=== PATIENT | male | born 1965 | race Caucasian/White ===

== ENCOUNTER 2016-08-31 08:07 | Day surgery (SDC) | payer BC ==
[~2016-08-31 08:07] MED LIST: ALLOPURINOL300 M1 PO; HYDROCODON-ACE1 EA16 PO; LIPITOR10 M1 PO; LOSARTAN-HCTZ1 EAC4 PO; MEDS; NORVASC10 M2 PO; OMEPRAZOLE40 M2 PO
[2016-08-31] MEDS ORDERED: PREDNISONE10 M1 PO (08:40)
[2016-08-31] MEDS ORDERED: DULCOLAX STOOL100 M1 PO (08:43)
[2016-08-31] MEDS ORDERED: ASPIRIN EC81 MG PO (08:44)
[2016-08-31] MEDS ORDERED: BACTRIM DS TAB1 EAC2 PO (08:44)
[2016-08-31] MEDS ORDERED: COMPAZINE10 MG PO (08:45)
[2016-08-31] MEDS ORDERED: BENADRYL25 M3 PO (08:46)
[2016-08-31] MEDS ORDERED: TYLENOL EXTRA500 M1 PO (08:46)
[2016-08-31] MEDS ORDERED: LIDOCAINE-PRILO30 G1 TP (08:48)
[2016-08-31 09:07] LABS: BASO % 0.3 % (0-2); BASO ABSOLUTE COUNT 0.1 tho/cmm (0.0-0.2); HCT-HEMATOCRIT 33.9 % (36.0-53.5); IMMATURE GRANULOCYTES ABSOLUTE 0.54 tho/cmm (0-0.03); IMMATURE GRANULOCYTES PERCENT 2.2 % (0-0.3); LYMPH ABSOLUTE COUNT 1.5 tho/cmm (0.8-4.5); MCH (MEAN CORPUSCULAR HGB) 28.1 pg (28.0-32.0); MCHC MEAN CORPUSCULAR HGB CONC 32.4 % (32.0-36.0); MCV (MEAN CELL VOLUME) 86.7 fl (82.0-96.0); MEAN PLATELET VOLUME 9.2 cmc (9.4-12.4); MONO % 5.7 % (0-12); MONOCYTE ABSOLUTE COUNT 1.4 tho/cmm (0.0-1.2); NEUTROPHILS % 85.8 % (40-80); PLATELET COUNT 334 tho/cmm (150-450); RED BLOOD COUNT 3.91 mil/cmm (4.40-5.70); RED CELL DISTRIBUTION WIDTH 18.3 % (12.4-16.4); WHITE BLOOD COUNT 24.5 tho/cmm (4.0-10.0)
[2016-08-31 09:15] LABS: PROTHROMBIN TIME 11.6 SECONDS (9.0-13.6)
[2016-12-06] MEDS ORDERED: LIPITOR10 M1 PO (10:38)
[2016-12-10] MEDS ORDERED: HYDROCHLOROTH12.5 M3 PO (12:18)
[2016-12-24] MEDS ORDERED: BENADRYL25 M3 PO (11:02)
[2016-12-24] MEDS ORDERED: MAALOX MAXIMUM355 M1 PO (11:04)
[2016-12-24] MEDS ORDERED: POTASSIUM CHLO20 ME3 PO (11:05)
[2016-12-24] MEDS ORDERED: LEUCOVORIN PO (15:07)
[2017-01-06] MEDS ORDERED: LEUCOVORIN PO (15:33)
== END 2016-08-31 13:07 ==
LOC: RADSP 08:07 → SHSB 08:08
PROVIDERS: Radiology Diagnostic Radiology
PROC: 009U3ZZ Drainage of Spinal Canal, Percutaneous Approach (ICD-10-PCS; principal; 2016-08-31)
PROC: B01BZZZ Fluoroscopy of Spinal Cord (ICD-10-PCS; 2016-08-31)
DX: C83.34 Diffuse large B-cell lymphoma, lymph nodes of axilla and upper limb (principal); I10 Essential (primary) hypertension; K21.9 Gastro-esophageal reflux disease without esophagitis; E78.5 Hyperlipidemia, unspecified; K76.0 Fatty (change of) liver, not elsewhere classified; E66.01 Morbid (severe) obesity due to excess calories; Z68.41 Body mass index [BMI] 40.0-44.9, adult
CPT/HCPCS: J7030; J9260

== ENCOUNTER 2016-09-21 08:25 | Day surgery (SDC) | payer BC ==
[~2016-09-21 08:25] MED LIST changes: +ASPIRIN EC81 MG PO; +BACTRIM DS TAB1 EAC2 PO; +BENADRYL25 M3 PO; +COMPAZINE10 MG PO; +DULCOLAX STOOL100 M1 PO; +LIDOCAINE-PRILO30 G1 TP; +PREDNISONE10 M1 PO; +TYLENOL EXTRA500 M1 PO
[2016-12-06] MEDS ORDERED: LIPITOR10 M1 PO (10:38)
[2016-12-10] MEDS ORDERED: HYDROCHLOROTH12.5 M3 PO (12:18)
[2016-12-24] MEDS ORDERED: BENADRYL25 M3 PO (11:02)
[2016-12-24] MEDS ORDERED: MAALOX MAXIMUM355 M1 PO (11:04)
[2016-12-24] MEDS ORDERED: POTASSIUM CHLO20 ME3 PO (11:05)
[2016-12-24] MEDS ORDERED: LEUCOVORIN PO (15:07)
[2017-01-06] MEDS ORDERED: LEUCOVORIN PO (15:33)
== END 2016-09-21 12:55 ==
LOC: RADSP 08:25 → SHSB 08:26
PROC: 009U3ZZ Drainage of Spinal Canal, Percutaneous Approach (ICD-10-PCS; principal; 2016-09-21)
PROC: B01BZZZ Fluoroscopy of Spinal Cord (ICD-10-PCS; 2016-09-21)
DX: C83.34 Diffuse large B-cell lymphoma, lymph nodes of axilla and upper limb (principal); I10 Essential (primary) hypertension; E78.5 Hyperlipidemia, unspecified; K21.9 Gastro-esophageal reflux disease without esophagitis; Z79.82 Long term (current) use of aspirin; Z79.899 Other long term (current) drug therapy
CPT/HCPCS: J7030

== ENCOUNTER 2016-10-12 08:36 | Day surgery (SDC) | payer BC ==
[2016-10-12 09:32] LABS: BASO % 0.1 % (0-2); HGB-HEMOGLOBIN 11.7 gm/dl (13.5-17.0); IMMATURE GRANULOCYTES ABSOLUTE 0.06 tho/cmm (0-0.03); IMMATURE GRANULOCYTES PERCENT 0.3 % (0-0.3); LYMPH % 3.8 % (20-45); LYMPH ABSOLUTE COUNT 0.7 tho/cmm (0.8-4.5); MCH (MEAN CORPUSCULAR HGB) 29.3 pg (28.0-32.0); MCHC MEAN CORPUSCULAR HGB CONC 33.4 % (32.0-36.0); MCV (MEAN CELL VOLUME) 87.7 fl (82.0-96.0); MONO % 3.9 % (0-12); MONOCYTE ABSOLUTE COUNT 0.7 tho/cmm (0.0-1.2); NEUTROPHIL ABSOLUTE COUNT 16.6 tho/cmm (1.6-8.0); NEUTROPHIL-AUTOMATED 16.6 tho/cmm (1.6-8.0); NEUTROPHILS % 91.9 % (40-80); PLATELET COUNT 340 tho/cmm (150-450); RED BLOOD COUNT 3.99 mil/cmm (4.40-5.70); RED CELL DISTRIBUTION WIDTH 19.4 % (12.4-16.4)
[2016-10-12 09:34] LABS: PROTHROMBIN TIME 11.6 SECONDS (9.0-13.6)
[2016-12-06] MEDS ORDERED: LIPITOR10 M1 PO (10:38)
[2016-12-10] MEDS ORDERED: HYDROCHLOROTH12.5 M3 PO (12:18)
[2016-12-24] MEDS ORDERED: BENADRYL25 M3 PO (11:02)
[2016-12-24] MEDS ORDERED: MAALOX MAXIMUM355 M1 PO (11:04)
[2016-12-24] MEDS ORDERED: POTASSIUM CHLO20 ME3 PO (11:05)
[2016-12-24] MEDS ORDERED: LEUCOVORIN PO (15:07)
[2017-01-06] MEDS ORDERED: LEUCOVORIN PO (15:33)
== END 2016-10-12 11:50 ==
LOC: RADSP 08:36 → SHSB 08:37
PROVIDERS: Radiology Diagnostic Radiology
PROC: 0Q903ZZ Drainage of Lumbar Vertebra, Percutaneous Approach (ICD-10-PCS; principal; 2016-10-12)
DX: C85.10 Unspecified B-cell lymphoma, unspecified site (principal); I10 Essential (primary) hypertension; E78.5 Hyperlipidemia, unspecified; D72.829 Elevated white blood cell count, unspecified; E66.01 Morbid (severe) obesity due to excess calories; K76.0 Fatty (change of) liver, not elsewhere classified; Z68.41 Body mass index [BMI] 40.0-44.9, adult; K21.9 Gastro-esophageal reflux disease without esophagitis; Z79.899 Other long term (current) drug therapy; Z87.891 Personal history of nicotine dependence; Z08 Encounter for follow-up examination after completed treatment for malignant neoplasm
CPT/HCPCS: J7030; J9260

== ENCOUNTER 2016-11-22 08:36 | Inpatient (IN) | payer BC ==
[2016-11-22 10:23] LABS: BASO % 1.4 % (0-2); BASO ABSOLUTE COUNT 0.2 tho/cmm (0.0-0.2); EOS % 0.6 % (0-7); EOSINOPHIL ABSOLUTE COUNT 0.1 tho/cmm (0.0-0.7); HCT-HEMATOCRIT 36.6 % (36.0-53.5); HGB-HEMOGLOBIN 11.9 gm/dl (13.5-17.0); IMMATURE GRANULOCYTES ABSOLUTE 0.06 tho/cmm (0-0.03); IMMATURE GRANULOCYTES PERCENT 0.6 % (0-0.3); LYMPH % 15.6 % (20-45); LYMPH ABSOLUTE COUNT 1.6 tho/cmm (0.8-4.5); MCH (MEAN CORPUSCULAR HGB) 29.5 pg (28.0-32.0); MCHC MEAN CORPUSCULAR HGB CONC 32.5 % (32.0-36.0); MCV (MEAN CELL VOLUME) 90.6 fl (82.0-96.0); MEAN PLATELET VOLUME 9.1 cmc (9.4-12.4); MONO % 10.9 % (0-12); MONOCYTE ABSOLUTE COUNT 1.1 tho/cmm (0.0-1.2); NEUTROPHIL ABSOLUTE COUNT 7.4 tho/cmm (1.6-8.0); NEUTROPHIL-AUTOMATED 7.4 tho/cmm (1.6-8.0); NEUTROPHILS % 70.9 % (40-80); PLATELET COUNT 309 tho/cmm (150-450); RED BLOOD COUNT 4.04 mil/cmm (4.40-5.70); WHITE BLOOD COUNT 10.4 tho/cmm (4.0-10.0)
[2016-11-22 10:45] LABS: ALB/GLOB RATIO 1.1 (0.8-2.0); ALBUMIN 3.4 g/dl (3.5-5.0); ALKALINE PHOSPHATASE 61 U/L (33-138); ALT/SGPT 35 U/L (12-78); ANION GAP 12 mmol/L (0-20); AST/SGOT 32 U/L (10-40); BILIRUBIN,TOTAL 0.3 mg/dl (0.0-1.5); BLOOD UREA NITROGEN 14 mg/dl (6-24); CALCIUM 8.9 mg/dl (8.5-10.5); CARBON DIOXIDE-VENOUS 28 mmol/L (22-32); CHLORIDE 106 mmol/l (96-110); CREATININE 0.75 mg/dl (0.60-1.30); GLUCOSE 86 mg/dL (70-110); POTASSIUM 3.5 mmol/L (3.7-5.1); SODIUM 142 mmol/L (135-145); eGFR VALUE FOR BLACK >90 mL/Min
[2016-11-23 06:24] LABS: BASO % 0.2 % (0-2); HCT-HEMATOCRIT 36.1 % (36.0-53.5); HGB-HEMOGLOBIN 12.1 gm/dl (13.5-17.0); IMMATURE GRANULOCYTES ABSOLUTE 0.05 tho/cmm (0-0.03); IMMATURE GRANULOCYTES PERCENT 0.3 % (0-0.3); LYMPH % 3.9 % (20-45); LYMPH ABSOLUTE COUNT 0.6 tho/cmm (0.8-4.5); MCH (MEAN CORPUSCULAR HGB) 29.5 pg (28.0-32.0); MCHC MEAN CORPUSCULAR HGB CONC 33.5 % (32.0-36.0); MEAN PLATELET VOLUME 8.8 cmc (9.4-12.4); MONO % 1.3 % (0-12); MONOCYTE ABSOLUTE COUNT 0.2 tho/cmm (0.0-1.2); NEUTROPHIL ABSOLUTE COUNT 14.2 tho/cmm (1.6-8.0); NEUTROPHIL-AUTOMATED 14.2 tho/cmm (1.6-8.0); NEUTROPHILS % 94.3 % (40-80); PLATELET COUNT 292 tho/cmm (150-450); RED CELL DISTRIBUTION WIDTH 16.3 % (12.4-16.4); WHITE BLOOD COUNT 15.1 tho/cmm (4.0-10.0)
[2016-11-23 06:42] LABS: ALBUMIN 2.8 g/dl (3.5-5.0); ALKALINE PHOSPHATASE 57 U/L (33-138); ALT/SGPT 36 U/L (12-78); ANION GAP 16 mmol/L (0-20); AST/SGOT 23 U/L (10-40); BLOOD UREA NITROGEN 10 mg/dl (6-24); CALCIUM 7.4 mg/dl (8.5-10.5); CARBON DIOXIDE-VENOUS 24 mmol/L (22-32); CHLORIDE 105 mmol/l (96-110); CREATININE 0.54 mg/dl (0.60-1.30); GLUCOSE 101 mg/dL (70-110); POTASSIUM 3.8 mmol/L (3.7-5.1); SODIUM 141 mmol/L (135-145); eGFR VALUE FOR BLACK >90 mL/Min
[2016-11-23 06:47] LABS: BILIRUBIN,TOTAL 0.5 mg/dl (0.0-1.5)
[2016-11-24 05:36] LABS: BASO % 0.3 % (0-2); HCT-HEMATOCRIT 35.1 % (36.0-53.5); HGB-HEMOGLOBIN 11.5 gm/dl (13.5-17.0); IMMATURE GRANULOCYTES ABSOLUTE 0.03 tho/cmm (0-0.03); IMMATURE GRANULOCYTES PERCENT 0.3 % (0-0.3); LYMPH % 13.4 % (20-45); LYMPH ABSOLUTE COUNT 1.5 tho/cmm (0.8-4.5); MCH (MEAN CORPUSCULAR HGB) 29.5 pg (28.0-32.0); MCHC MEAN CORPUSCULAR HGB CONC 32.8 % (32.0-36.0); MEAN PLATELET VOLUME 9.2 cmc (9.4-12.4); MONO % 8.4 % (0-12); NEUTROPHIL ABSOLUTE COUNT 8.9 tho/cmm (1.6-8.0); NEUTROPHIL-AUTOMATED 8.9 tho/cmm (1.6-8.0); NEUTROPHILS % 77.6 % (40-80); PLATELET COUNT 294 tho/cmm (150-450); RED CELL DISTRIBUTION WIDTH 17.1 % (12.4-16.4); WHITE BLOOD COUNT 11.5 tho/cmm (4.0-10.0)
[2016-11-24 06:04] LABS: ALB/GLOB RATIO 1.1 (0.8-2.0); ALBUMIN 3.2 g/dl (3.5-5.0); ALKALINE PHOSPHATASE 62 U/L (33-138); ALT/SGPT 51 U/L (12-78); ANION GAP 12 mmol/L (0-20); AST/SGOT 36 U/L (10-40); BLOOD UREA NITROGEN 10 mg/dl (6-24); CALCIUM 8.4 mg/dl (8.5-10.5); CARBON DIOXIDE-VENOUS 28 mmol/L (22-32); CHLORIDE 110 mmol/l (96-110); CREATININE 0.65 mg/dl (0.60-1.30); GLUCOSE 104 mg/dL (70-110); POTASSIUM 3.7 mmol/L (3.7-5.1); SODIUM 146 mmol/L (135-145); eGFR VALUE FOR BLACK >90 mL/Min
[2016-11-24 06:06] LABS: BILIRUBIN,TOTAL 0.2 mg/dl (0.0-1.5)
[2016-11-25 03:49] LABS: BASO % 1.6 % (0-2); BASO ABSOLUTE COUNT 0.1 tho/cmm (0.0-0.2); EOS % 0.6 % (0-7); EOSINOPHIL ABSOLUTE COUNT 0.1 tho/cmm (0.0-0.7); HCT-HEMATOCRIT 37.3 % (36.0-53.5); IMMATURE GRANULOCYTES ABSOLUTE 0.02 tho/cmm (0-0.03); IMMATURE GRANULOCYTES PERCENT 0.2 % (0-0.3); LYMPH % 23.7 % (20-45); MCH (MEAN CORPUSCULAR HGB) 29.4 pg (28.0-32.0); MCHC MEAN CORPUSCULAR HGB CONC 32.2 % (32.0-36.0); MCV (MEAN CELL VOLUME) 91.4 fl (82.0-96.0); MEAN PLATELET VOLUME 9.2 cmc (9.4-12.4); MONO % 3.7 % (0-12); MONOCYTE ABSOLUTE COUNT 0.3 tho/cmm (0.0-1.2); NEUTROPHIL ABSOLUTE COUNT 5.8 tho/cmm (1.6-8.0); NEUTROPHIL-AUTOMATED 5.8 tho/cmm (1.6-8.0); NEUTROPHILS % 70.2 % (40-80); PLATELET COUNT 318 tho/cmm (150-450); RED BLOOD COUNT 4.08 mil/cmm (4.40-5.70); RED CELL DISTRIBUTION WIDTH 17.3 % (12.4-16.4); WHITE BLOOD COUNT 8.3 tho/cmm (4.0-10.0)
[2016-11-25 04:13] LABS: ALB/GLOB RATIO 1.1 (0.8-2.0); ALBUMIN 3.2 g/dl (3.5-5.0); ALKALINE PHOSPHATASE 59 U/L (33-138); BILIRUBIN,TOTAL 0.2 mg/dl (0.0-1.5); BLOOD UREA NITROGEN 10 mg/dl (6-24); CALCIUM 8.4 mg/dl (8.5-10.5); CARBON DIOXIDE-VENOUS 28 mmol/L (22-32); CHLORIDE 108 mmol/l (96-110); CREATININE 0.69 mg/dl (0.60-1.30); GLUCOSE 80 mg/dL (70-110); SODIUM 144 mmol/L (135-145); eGFR VALUE FOR BLACK >90 mL/Min
[2016-11-25 04:29] LABS: ALT/SGPT 99 U/L (12-78); ANION GAP 12 mmol/L (0-20); AST/SGOT 73 U/L (10-40); POTASSIUM 4.1 mmol/L (3.7-5.1)
[2016-11-26 05:10] LABS: BASO ABSOLUTE COUNT 0.1 tho/cmm (0.0-0.2); EOS % 2.8 % (0-7); EOSINOPHIL ABSOLUTE COUNT 0.3 tho/cmm (0.0-0.7); HCT-HEMATOCRIT 38.6 % (36.0-53.5); HGB-HEMOGLOBIN 12.8 gm/dl (13.5-17.0); IMMATURE GRANULOCYTES ABSOLUTE 0.02 tho/cmm (0-0.03); IMMATURE GRANULOCYTES PERCENT 0.2 % (0-0.3); LYMPH % 17.6 % (20-45); LYMPH ABSOLUTE COUNT 1.6 tho/cmm (0.8-4.5); MCH (MEAN CORPUSCULAR HGB) 30.1 pg (28.0-32.0); MCHC MEAN CORPUSCULAR HGB CONC 33.2 % (32.0-36.0); MCV (MEAN CELL VOLUME) 90.8 fl (82.0-96.0); MONO % 1.8 % (0-12); MONOCYTE ABSOLUTE COUNT 0.2 tho/cmm (0.0-1.2); NEUTROPHIL ABSOLUTE COUNT 6.8 tho/cmm (1.6-8.0); NEUTROPHIL-AUTOMATED 6.8 tho/cmm (1.6-8.0); NEUTROPHILS % 76.6 % (40-80); PLATELET COUNT 332 tho/cmm (150-450); RED BLOOD COUNT 4.25 mil/cmm (4.40-5.70); WHITE BLOOD COUNT 8.9 tho/cmm (4.0-10.0)
[2016-11-26 05:19] LABS: ALBUMIN 3.2 g/dl (3.5-5.0); ALKALINE PHOSPHATASE 61 U/L (33-138); ALT/SGPT 100 U/L (12-78); ANION GAP 12 mmol/L (0-20); AST/SGOT 47 U/L (10-40); BILIRUBIN,TOTAL 0.3 mg/dl (0.0-1.5); BLOOD UREA NITROGEN 10 mg/dl (6-24); CALCIUM 8.5 mg/dl (8.5-10.5); CARBON DIOXIDE-VENOUS 27 mmol/L (22-32); CHLORIDE 108 mmol/l (96-110); CREATININE 0.68 mg/dl (0.60-1.30); GLUCOSE 101 mg/dL (70-110); SODIUM 143 mmol/L (135-145); eGFR VALUE FOR BLACK >90 mL/Min
[2016-11-26] MEDS ORDERED: MAGIC MOUTHWASH SSP (12:38)
[2016-12-06] MEDS ORDERED: LIPITOR10 M1 PO (10:38)
[2016-12-10] MEDS ORDERED: HYDROCHLOROTH12.5 M3 PO (12:18)
[2016-12-24] MEDS ORDERED: BENADRYL25 M3 PO (11:02)
[2016-12-24] MEDS ORDERED: MAALOX MAXIMUM355 M1 PO (11:04)
[2016-12-24] MEDS ORDERED: POTASSIUM CHLO20 ME3 PO (11:05)
[2016-12-24] MEDS ORDERED: LEUCOVORIN PO (15:07)
[2017-01-06] MEDS ORDERED: LEUCOVORIN PO (15:33)
== END 2016-11-26 15:48 | DRG 847 ==
LOC: 5WF 08:36
PROVIDERS: ADMIT Internal Medicine Medical Oncology
DX: Z51.11 Encounter for antineoplastic chemotherapy (principal); C83.30 Diffuse large B-cell lymphoma, unspecified site; Z68.41 Body mass index [BMI] 40.0-44.9, adult; K76.0 Fatty (change of) liver, not elsewhere classified; E66.01 Morbid (severe) obesity due to excess calories; D64.81 Anemia due to antineoplastic chemotherapy; K21.9 Gastro-esophageal reflux disease without esophagitis; I10 Essential (primary) hypertension; E78.5 Hyperlipidemia, unspecified; Z79.82 Long term (current) use of aspirin; T45.1X5A Adverse effect of antineoplastic and immunosuppressive drugs, initial encounter
CPT/HCPCS: J0640; J1100; J1650; J2060; J2405; J7030; J9260